=== PATIENT | male | born 1945 | race Caucasian/White ===

== ENCOUNTER 2019-05-18 08:00 | Outpatient (CLI) | payer MEDICARE, OTHER ==
[2013-12-24 12:19] VITALS: BMI 25.8
[~2019-05-18 08:00] MED LIST: ASPIRIN 81 MG E81 MG PO; CO Q10 PO; FISH OIL PO; FLOMAX0.4 MG PO; LISINOPRIL10 MG PO; MULTI-DAY VITAM1 TAB PO; PRAVACHOL40 MG PO; TRAVATAN Z2.5 ML LEFT EYE; VITAMIN B12; VITAMIN C PO; VITAMIN D3 PO
== END 2019-05-18 08:01 | disposition home or self-care (01) ==
LOC: D.OPS 08:00 → D.PAN 05-19 08:45 → D.OPS 05-19 08:45 → D.PAN 05-19 10:15 → D.OPS 05-19 10:15 → EDSTATUS 05-19 10:15
PROVIDERS: Anesthesiology; ATTEND Podiatrist
DX: M20.41 Other hammer toe(s) (acquired), right foot (principal)